=== PATIENT | female | born 2000 | race Caucasian/White ===

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

== ENCOUNTER 2019-03-12 13:10 | Emergency (ER) | payer OTHER, MEDICAID ==
[~2019-03-12] VITALS: Ht 162.6 cm; Wt 105.2 kg
[2019-03-12 14:14] LABS: INFLUENZA A ANTIGEN Negative (Negative); INFLUENZA B ANTIGEN Negative (Negative)
[2019-03-12] MEDS ORDERED: TYLENOL WITH CO1 TA1 PO (15:07)
[2019-03-12] MEDS ORDERED: TESSALON PERLE100 MG PO (15:07)
[2019-03-12] MEDS ORDERED: PROMETHAZI6.25 MG/5 PO (15:07)
[2019-03-12 15:19] VITALS: BP 142/65
== END 2019-03-12 15:20 | disposition home or self-care (01) ==
LOC: M.ERS 13:10
PROVIDERS: Family Medicine
DX: J06.9 Acute upper respiratory infection, unspecified (principal); F17.210 Nicotine dependence, cigarettes, uncomplicated; Z91.018 Allergy to other foods

== ENCOUNTER 2020-03-19 05:17 | Emergency (ER) | payer OTHER, MEDICAID ==
[~2020-03-19] VITALS: Ht 162.6 cm; Wt 108.9 kg
[~2020-03-19 05:17] MED LIST changes: +PROMETHAZI6.25 MG/5 PO; +TESSALON PERLE100 MG PO; +TYLENOL WITH CO1 TA1 PO
[2020-03-19] MEDS ORDERED: MELATONIN10 M3 PO (05:33)
[2020-03-19 05:54] LABS: URINE BILIRUBIN NEGATIVE (Negative); URINE BLOOD NEGATIVE (Negative); URINE CLARITY CLEAR; URINE COLOR YELLOW; URINE GLUCOSE-RANDOM NEGATIVE (Negative); URINE KETONES NEGATIVE (Negative); URINE LEUKOCYTES-REFLEX NEGATIVE (Negative); URINE NITRITE-REFLEX NEGATIVE (Negative); URINE PROTEIN NEGATIVE (Negative); URINE SPECIFIC GRAVITY >= 1.030 (1.005-1.030); URINE UROBILINOGEN 0.2 E.U./dl (0.2-1.0)
[2020-03-19 06:30] LABS: ABSOLUTE BASOPHILS 0.1 thou/uL (0.0-0.2); ABSOLUTE EOSINOPHILS 0.2 thou/uL (0.0-0.7); ABSOLUTE MONOCYTES 0.9 thou/uL (0.0-1.2); ABSOLUTE NEUTROPHILS 12.2 thou/uL (1.6-8.1); BASOPHILS 0.7 %; EOSINOPHILS 1.4 %; HEMATOCRIT 38.5 % (37.0-47.0); HEMOGLOBIN 12.4 gm/dL (12.0-15.0); LYMPHOCYTES 18.2 %; MCH 25.3 pg (26.0-34.0); MCHC 32.3 g/dL (28.0-37.0); MCV 78.3 fL (80.0-100.0); MONOCYTES 5.5 %; MPV 8.5 fl. (7.2-11.1); NUCLEATED RBCS 0 /100WBC; PLATELET COUNT* 300 thou/uL (150-400); POLYS 74.2 %; RBC 4.92 mil/uL (4.20-5.00); WBC 16.5 thou/uL (4.0-11.0)
[2020-03-19 06:33] LABS: CALCIUM 9.2 mg/dL (8.5-10.1); CREATININE 0.9 mg/dL (0.6-1.3); POTASSIUM 3.9 mmol/L (3.5-5.1)
[2020-03-19] MEDS ORDERED: ZOFRAN ODT4 MG DISSOLVE (08:08)
[2020-03-19] MEDS ORDERED: HYDROCODON-ACE1 EAC7 PO (08:08)
[2020-03-19 08:30] VITALS: BP 144/77
== END 2020-03-19 08:30 | disposition home or self-care (01) ==
LOC: M.ERS 05:17
PROVIDERS: Emergency Medicine
DX: R10.31 Right lower quadrant pain (principal); R10.32 Left lower quadrant pain; Z91.018 Allergy to other foods

== ENCOUNTER 2020-07-17 16:46 | Emergency (ER) | payer OTHER, MEDICAID ==
[~2020-07-17] VITALS: Ht 162.6 cm; Wt 107.5 kg
[~2020-07-17 16:46] MED LIST changes: +HYDROCODON-ACE1 EAC7 PO; +MELATONIN10 M3 PO
[2020-07-17] MEDS ORDERED: ABILIFY10 MG PO (17:02)
[2020-07-17] MEDS ORDERED: PROZAC20 M1 PO (17:02)
[2020-07-17] MEDS ORDERED: IBUPROFEN 800800 M1 PO (17:41)
[2020-07-17 17:49] VITALS: BP 131/77
== END 2020-07-17 17:50 | disposition home or self-care (01) ==
LOC: M.ERS 16:46
DX: S93.402A Sprain of unspecified ligament of left ankle, initial encounter (principal); F32.9 Major depressive disorder, single episode, unspecified; F90.9 Attention-deficit hyperactivity disorder, unspecified type; Z79.899 Other long term (current) drug therapy; Z91.018 Allergy to other foods; X50.1XXA Overexertion from prolonged static or awkward postures, initial encounter; Y93.89 Activity, other specified; Y92.89 Other specified places as the place of occurrence of the external cause; Y99.8 Other external cause status

== ENCOUNTER 2020-08-15 18:33 | Emergency (ER) | payer OTHER, MEDICAID ==
[~2020-08-15] VITALS: Ht 162.6 cm; Wt 104.3 kg
[~2020-08-15 18:33] MED LIST changes: +ABILIFY10 MG PO; +PROZAC20 M1 PO
[2020-08-15 19:10] VITALS: BP 107/58
== END 2020-08-15 19:10 | disposition home or self-care (01) ==
LOC: M.ERS 18:33
DX: N93.8 Other specified abnormal uterine and vaginal bleeding (principal)

== ENCOUNTER 2020-11-11 21:37 | Emergency (ER) | payer OTHER, MEDICAID ==
[~2020-11-11] VITALS: Ht 162.6 cm; Wt 108.9 kg
[2020-11-11 22:51] VITALS: BP 149/79
== END 2020-11-11 22:51 | disposition home or self-care (01) ==
LOC: M.ERS 21:37
DX: J06.9 Acute upper respiratory infection, unspecified (principal); Z20.822 Contact with and (suspected) exposure to COVID-19; F32.9 Major depressive disorder, single episode, unspecified; F41.9 Anxiety disorder, unspecified; F90.9 Attention-deficit hyperactivity disorder, unspecified type; Z79.899 Other long term (current) drug therapy; Z91.02 Food additives allergy status

== ENCOUNTER 2020-12-27 18:50 | Emergency (ER) | payer OTHER, MEDICAID ==
[~2020-12-27] VITALS: Ht 162.6 cm; Wt 113.0 kg
[2020-12-27 20:28] VITALS: BP 148/85
== END 2020-12-27 20:28 | disposition home or self-care (01) ==
LOC: M.ERS 18:50
DX: Z32.02 Encounter for pregnancy test, result negative (principal); F32.9 Major depressive disorder, single episode, unspecified; F41.9 Anxiety disorder, unspecified; F90.9 Attention-deficit hyperactivity disorder, unspecified type; Z90.89 Acquired absence of other organs; Z79.899 Other long term (current) drug therapy; Z91.02 Food additives allergy status

== ENCOUNTER 2021-02-18 09:27 | Emergency (ER) | payer OTHER, MEDICAID ==
[~2021-02-18] VITALS: Ht 162.6 cm; Wt 108.9 kg
[2021-02-18] MEDS ORDERED: PREDNISONE 20 M20 M1 PO (11:51)
[2021-02-18] MEDS ORDERED: ZPAK PO (11:51)
[2021-02-18] MEDS ORDERED: VENTOLIN HFA 1818 GM INH (11:51)
[2021-02-18 11:59] VITALS: BP 132/70
== END 2021-02-18 12:00 | disposition home or self-care (01) ==
LOC: M.ERS 09:27
DX: J40 Bronchitis, not specified as acute or chronic (principal); F32.9 Major depressive disorder, single episode, unspecified; F41.9 Anxiety disorder, unspecified; F90.9 Attention-deficit hyperactivity disorder, unspecified type; Z79.899 Other long term (current) drug therapy; Z91.018 Allergy to other foods